=== PATIENT | female | born 1970 | race Caucasian/White ===

== ENCOUNTER → 2022-07-08 | Outpatient (CLI) | payer OTHER ==
[~2022-07-08] MED LIST: NORV5TAB PO; VALS1TAB67 PO
== END ==
LOC: M WHC 11:15
PROVIDERS: ATTEND Student in an Organized Health Care Education/Training Program
DX: Z12.31 Encounter for screening mammogram for malignant neoplasm of breast (principal); N63.20 Unspecified lump in the left breast, unspecified quadrant

== ENCOUNTER → 2022-07-21 | Outpatient (CLI) | payer OTHER | LOC: M WHC 08:43 | PROVIDERS: ATTEND Student in an Organized Health Care Education/Training Program | DX: R92.2 Inconclusive mammogram (principal); N63.42 Unspecified lump in left breast, subareolar | CPT/HCPCS: 76641; 77066; G0279 ==

== ENCOUNTER 2023-06-05 00:20 | Emergency (ER) | payer OTHER ==
[~2023-06-05] VITALS: Ht 167.6 cm; Wt 121.7 kg
[2023-06-05] MEDS: ASPIRIN 81MG CHEW TABLET PO ONE (00:47)
[2023-06-05 00:50] VITALS: TEMP 98.8
[2023-06-05 00:54] LABS: BASO # 0.1 10^3/uL (0.0-0.2); BASO % 0.7 % (0.0-1.0); EOS # 0.2 10^3/uL (0.0-0.5); EOS % 1.8 % (0.0-3.0); HEMATOCRIT 41.9 % (36.0-47.0); HEMOGLOBIN 13.9 g/dl (12.0-15.5); LYMPH # 3.1 10^3/uL (1.5-5.0); LYMPH % 25.5 % (24.0-44.0); MEAN CORPUSCULAR HGB CONC 33.2 g/dl (32.0-36.5); MEAN CORPUSCULAR VOLUME 96.5 fl (80.0-96.0); MONO # 0.8 10^3/uL (0.0-0.8); MONO % 6.7 % (2.0-8.0); NEUTROPHILS # 7.8 10^3/uL (1.5-8.5); PLATELET COUNT, AUTOMATED 317 10^3/uL (150-450); RED BLOOD COUNT 4.34 10^6/uL (4.00-5.40)
[2023-06-05 01:09] LABS: INR 0.98; PROTHROMBIN TIME 12.7 SECONDS (12.5-14.5)
[2023-06-05 01:17] LABS: LIPASE 56 U/L (12-53)
[2023-06-05 01:19] LABS: ALBUMIN 3.4 G/DL (3.2-5.2); ALKALINE PHOSPHATASE 74 U/L (46-116); ALT/SGPT 48 U/L (7.0-40); AST/SGOT 45 U/L (<34); BILIRUBIN,DIRECT < 0.1 MG/DL (<0.4); BILIRUBIN,TOTAL 0.2 MG/DL (0.3-1.2); BLOOD UREA NITROGEN 13 MG/DL (9-23); CALCIUM LEVEL 9.1 MG/DL (8.5-10.1); CARBON DIOXIDE LEVEL 26 MMOL/L (20-31); CHLORIDE LEVEL 105 MMOL/L (98-107); CK-MB VALUE MASS < 1.0 NG/ML (<3.6); CREATININE FOR GFR 0.72 MG/DL (0.55-1.30); GLOMERULAR FILTRATION RATE > 60.0 (>51); GLUCOSE, FASTING 150 MG/DL (60-100); POTASSIUM SERUM 4.4 MMOL/L (3.5-5.1); SODIUM LEVEL 138 MMOL/L (136-145); TOTAL PROTEIN 7.4 G/DL (5.7-8.2)
[2023-06-05] MEDS ORDERED: ISOVUE-370 76% 100ML VIAL As Ordered ONE (01:22)
[2023-06-05 01:27] LABS: CPK CREATINE PHOSPHOKINASE 40 U/L (34-145)
[2023-06-05] MEDS: PANTOPRAZOLE 40MG VIAL IV ONE (01:39)
[2023-06-05] MEDS: MAALOX 30 ML SUSP *UDC PO ONE (01:39)
[2023-06-05 02:19] LABS: CK-MB VALUE MASS < 1.0 NG/ML (<3.6)
[2023-06-05 02:20] LABS: CPK CREATINE PHOSPHOKINASE 40 U/L (34-145)
[2023-06-05 03:01] VITALS: BP 128/88; O2SAT 98
[2023-06-05] MEDS ORDERED: PROT1TAB2 PO (03:13)
== END 2023-06-05 03:20 | disposition home or self-care (01) ==
LOC: M ED 00:20
DX: K21.9 Gastro-esophageal reflux disease without esophagitis (principal); R91.1 Solitary pulmonary nodule; I10 Essential (primary) hypertension; F17.200 Nicotine dependence, unspecified, uncomplicated; F10.10 Alcohol abuse, uncomplicated; Z79.84 Long term (current) use of oral hypoglycemic drugs; Z79.899 Other long term (current) drug therapy
CPT/HCPCS: 71045; 71275; 80048; 80076; 82550; 82553; 83690; 84484; 85025; 85610; 93005; 93041; 94760; 96374; 99284; C9113; Q9967

== ENCOUNTER → 2024-01-30 | Outpatient (CLI) | payer OTHER ==
[~2024-01-30] MED LIST changes: +PROT1TAB2 PO
== END ==
LOC: M WHC 10:07
PROVIDERS: ATTEND Family Medicine
DX: Z12.31 Encounter for screening mammogram for malignant neoplasm of breast (principal); R92.333 Mammographic heterogeneous density, bilateral breasts; N63.10 Unspecified lump in the right breast, unspecified quadrant; N63.20 Unspecified lump in the left breast, unspecified quadrant

== ENCOUNTER → 2024-02-07 | Outpatient (CLI) | payer OTHER ==
[~2024-02-07] MED LIST changes: +ISOVUE-370 76% 100ML VIAL ONE
== END ==
LOC: M PLAIMG 09:22
PROVIDERS: ATTEND Family Medicine
DX: R91.1 Solitary pulmonary nodule (principal)
CPT/HCPCS: 71275; Q9967

== ENCOUNTER → 2025-03-14 | Outpatient (CLI) | payer OTHER ==
[~2025-03-14] MED LIST changes: -ISOVUE-370 76% 100ML VIAL ONE
== END ==
LOC: M WHC 09:58
PROVIDERS: ATTEND Internal Medicine
DX: Z12.31 Encounter for screening mammogram for malignant neoplasm of breast (principal); R92.323 Mammographic fibroglandular density, bilateral breasts; N64.89 Other specified disorders of breast

== ENCOUNTER → 2025-03-14 | Outpatient (CLI) | payer OTHER | LOC: M PLAIMG 09:57 | PROVIDERS: ATTEND Internal Medicine | DX: J98.4 Other disorders of lung (principal); R91.1 Solitary pulmonary nodule ==